=== PATIENT | female | born 1930 | race Caucasian/White ===

== ENCOUNTER 2017-09-01 13:20 | Emergency (ER) | payer MEDICARE ==
[2017-09-01] MEDS ORDERED: DEXAMETHASONE SOD PHOSPHATE 10MG/ML 1ML VIAL ONE (14:36)
[2017-09-01] MEDS ORDERED: IPRATROPIUM/ALBUTEROL SULFATE 3 ML SOLUTION IH ONE (14:43)
== END 2017-09-01 15:34 | disposition home or self-care (01) ==
LOC: EDH 13:20
DX: J09.X2 Influenza due to identified novel influenza A virus with other respiratory manifestations (principal); I10 Essential (primary) hypertension; Z88.1 Allergy status to other antibiotic agents; Z88.8 Allergy status to other drugs, medicaments and biological substances; Z95.1 Presence of aortocoronary bypass graft
CPT/HCPCS: 71046; 87804 ×2; 94640; 96372; 99285; J1100

== ENCOUNTER 2017-11-01 12:46 | Inpatient (IN) | payer MEDICARE ==
[~2017-11-01] VITALS: Ht 154.9 cm; Wt 50.4 kg
[2017-11-01 13:58] LABS: EOSINOPHILS % (AUTO) 3.6 % (0.0-8.0); HEMATOCRIT 40.7 % (36-48); LYMPHOCYTES % (AUTO) 27.9 % (21.0-51.0); MEAN CORPUSCULAR HEMOGLOBIN 30.8 pg (27.0-33.0); MEAN CORPUSCULAR HGB CONC 33.9 g/dL (32.0-36.0); MONOCYTES % (AUTO) 9.7 % (3.0-13.0); NEUTROPHILS % (AUTO) 57.8 % (40.0-77.0); NUCLEATED RED BLOOD CELLS 0.1 % (0.0-0.19); PLATELET COUNT (AUTO) 140 K/uL (130-400); RED BLOOD CELL COUNT(AUTO) 4.47 MIL/uL (4.00-5.50); RED CELL DISTRIBUTION WIDTH 13.9 % (11.0-15.5)
[2017-11-01 14:14] LABS: CARBON DIOXIDE 27 mmol/L (21-32); CHLORIDE 104 mmol/L (101-111); GLOMERULAR FILTR. RATE CALC 56 mL/min (>60); GLUCOSE,RANDOM 163 mg/dL (70-105); POTASSIUM 3.9 mmol/L (3.5-5.1); SODIUM SERUM 140 mmol/L (136-145); UREA NITROGEN, BLOOD 13 mg/dL (7-18)
[2017-11-01 14:25] LABS: B-TYPE NATRIURETIC PEPTIDE 348 pg/mL (0-100)
[2017-11-01 14:27] LABS: ALANINE AMINOTRANSFERASE 30 U/L (12-78); ALBUMIN 3.7 g/dL (3.5-5.0); ASPARTATE AMINOTRANSFERASE 21 U/L (10-37); BILIRUBIN,TOTAL 0.6 mg/dL (0.2-1.0); CREATINE KINASE MB < 0.5 ng/mL (0.5-3.6); CREATINE KINASE, TOTAL 51 U/L (21-232)
[2017-11-01 14:36] LABS: INR 1.05 (0.85-1.15); PARTIAL THROMBOPLASTIN TIME 29.8 SEC (26.3-35.5)
[2017-11-01] MEDS ORDERED: IPRATROPIUM/ALBUTEROL SULFATE 3 ML SOLUTION IH ONE (15:16)
[2017-11-01] MEDS ORDERED: IOPAMIDOL-370 100 ML VIAL IV ONE (17:24)
[2017-11-01] MEDS ORDERED: CARVEDILOL 12.5 MG TABLET PO ONE (18:42)
[2017-11-01] MEDS ORDERED: LEVOFLOXACIN 500 MG/D5W 100 ML 100 ML ONE (18:57)
[2017-11-01] MEDS ORDERED: AZITHROMYCIN 250 MG TABLET PO ONE (18:58)
[2017-11-01 19:00] VITALS: BP 139/90
[2017-11-01] MEDS ORDERED: ACETAMINOPHEN 325 MG TAB PO PRN (20:45)
[2017-11-01] MEDS: IPRATROPIUM/ALBUTEROL SULFATE 3 ML SOLUTION IH SCH (21:10)
[2017-11-01] MEDS ORDERED: CARV12.580 PO (21:37)
[2017-11-01] MEDS ORDERED: LEVO88TA7 PO (21:37)
[2017-11-01] MEDS ORDERED: APIX2.5T PO (21:37)
[2017-11-01] MEDS ORDERED: NIFE30TA91 PO (21:37)
[2017-11-01] MEDS ORDERED: LOVA40TA2 PO (21:37)
[2017-11-01] MEDS ORDERED: LISI30TA4 PO (21:37)
[2017-11-02] VITALS (7 sets, daily range): BP systolic 120–158; BP diastolic 69–101
[2017-11-02] MEDS: IPRATROPIUM/ALBUTEROL SULFATE 3 ML SOLUTION IH SCH ×2 (06:00→06:17)
[2017-11-02] MEDS: LEVOTHYROXINE 88 MCG TABLET PO SCH (06:44)
[2017-11-02 06:50] LABS: HEMATOCRIT 41.3 % (36-48); MEAN CORPUSCULAR HEMOGLOBIN 31.7 pg (27.0-33.0); MEAN CORPUSCULAR HGB CONC 35.1 g/dL (32.0-36.0); MEAN CORPUSCULAR VOLUME 90.2 fL (79-99); PLATELET COUNT (AUTO) 147 K/uL (130-400); RED BLOOD CELL COUNT(AUTO) 4.58 MIL/uL (4.00-5.50); RED CELL DISTRIBUTION WIDTH 14.1 % (11.0-15.5)
[2017-11-02 07:03] LABS: ALBUMIN 3.7 g/dL (3.5-5.0); BILIRUBIN,TOTAL 0.6 mg/dL (0.2-1.0); CREATININE 0.8 mg/dL (0.5-1.5); POTASSIUM 4.2 mmol/L (3.5-5.1); TOTAL PROTEIN, SERUM 7.2 g/dL (6.0-8.3)
[2017-11-02] MEDS: IPRATROPIUM 0.5 MG/2.5 ML INH IH SCH ×3 (07:20→22:15)
[2017-11-02] MEDS ORDERED: NIFEDIPINE ER 30 MG TAB PO SCH (09:00)
[2017-11-02] MEDS: CARVEDILOL 12.5 MG TABLET PO SCH ×2 (09:11→20:19)
[2017-11-02] MEDS: APIXABAN 2.5 MG TABLET PO SCH ×2 (09:11→20:17)
[2017-11-02] MEDS: METHYLPREDNISOLONE SOD SUCC 40MG/ML 1ML IVP SCH ×2 (09:11→20:19)
[2017-11-02] MEDS: ATORVASTATIN CALCIUM 10 MG TABLET PO SCH (20:17)
[2017-11-02] MEDS: LISINOPRIL 10 MG TABLET PO SCH (20:18)
[2017-11-02] MEDS: LEVOFLOXACIN 500 MG/D5W 100 ML 100 ML IV SCH (20:19)
[2017-11-03 03:18] VITALS: BP 142/101
[2017-11-03] MEDS: LEVOTHYROXINE 88 MCG TABLET PO SCH (05:42)
[2017-11-03] MEDS: IPRATROPIUM 0.5 MG/2.5 ML INH IH SCH ×3 (06:32→21:32)
[2017-11-03] MEDS ORDERED: CARVEDILOL 25 MG TABLET PO ONE (08:06)
[2017-11-03] MEDS: APIXABAN 2.5 MG TABLET PO SCH ×2 (08:18→20:11)
[2017-11-03] MEDS: METHYLPREDNISOLONE SOD SUCC 40MG/ML 1ML IVP SCH ×2 (08:18→20:10)
[2017-11-03 08:34] VITALS: BP 143/83
[2017-11-03] MEDS: CARVEDILOL 12.5 MG TABLET PO SCH ×2 (09:00→20:12)
[2017-11-03] MEDS: PANTOPRAZOLE SODIUM 40 MG TABLET.DR PO SCH (10:43)
[2017-11-03 12:00] VITALS: BP 135/69
[2017-11-03] MEDS ORDERED: METOPROLOL TARTRATE 1 MG/ML 5ML VIAL IV PRN (14:15)
[2017-11-03 17:23] VITALS: BP 125/82
[2017-11-03 19:58] VITALS: BP 131/88
[2017-11-03] MEDS: LEVOFLOXACIN 500 MG/D5W 100 ML 100 ML IV SCH (20:09)
[2017-11-03] MEDS: ATORVASTATIN CALCIUM 10 MG TABLET PO SCH (20:11)
[2017-11-03] MEDS: LISINOPRIL 10 MG TABLET PO SCH (20:11)
[2017-11-03 23:28] VITALS: BP 141/86
[2017-11-04 03:20] VITALS: BP 140/81
[2017-11-04] MEDS: LEVOTHYROXINE 88 MCG TABLET PO SCH (06:19)
[2017-11-04] MEDS: PANTOPRAZOLE SODIUM 40 MG TABLET.DR PO SCH (06:19)
[2017-11-04] MEDS: IPRATROPIUM 0.5 MG/2.5 ML INH IH SCH (06:47)
[2017-11-04] MEDS ORDERED: CARV25TA PO (07:40)
[2017-11-04 08:00] VITALS: BP 146/92
[2017-11-04] MEDS: METHYLPREDNISOLONE SOD SUCC 40MG/ML 1ML IVP SCH (08:48)
[2017-11-04] MEDS: APIXABAN 2.5 MG TABLET PO SCH (08:48)
[2017-11-04] MEDS: CARVEDILOL 12.5 MG TABLET PO SCH (08:49)
[2017-11-04 11:00] VITALS: BP 116/76
== END 2017-11-04 13:06 | disposition home or self-care (01) | DRG 193 ==
LOC: EDH 12:46 → OBSVTOIN 18:00 → EDHIP 18:00 → 3AH 20:48
PROVIDERS: ADMIT Internal Medicine Nephrology; ATTEND Internal Medicine Nephrology
DX: J18.9 Pneumonia, unspecified organism (principal); Q22.5 Ebstein's anomaly; I48.2 Chronic atrial fibrillation; I07.1 Rheumatic tricuspid insufficiency; I11.9 Hypertensive heart disease without heart failure; I10 Essential (primary) hypertension; E03.9 Hypothyroidism, unspecified; E78.5 Hyperlipidemia, unspecified; J45.909 Unspecified asthma, uncomplicated; I34.0 Nonrheumatic mitral (valve) insufficiency; D72.819 Decreased white blood cell count, unspecified; R09.02 Hypoxemia; K57.90 Diverticulosis of intestine, part unspecified, without perforation or abscess without bleeding; I25.10 Atherosclerotic heart disease of native coronary artery without angina pectoris; Z95.1 Presence of aortocoronary bypass graft; Z82.49 Family history of ischemic heart disease and other diseases of the circulatory system; Z98.49 Cataract extraction status, unspecified eye; Z88.1 Allergy status to other antibiotic agents; Z88.0 Allergy status to penicillin; Z88.8 Allergy status to other drugs, medicaments and biological substances; Z79.899 Other long term (current) drug therapy; Z79.01 Long term (current) use of anticoagulants; Z87.891 Personal history of nicotine dependence; Z82.3 Family history of stroke
CPT/HCPCS: 36415; 71045; 71275; 80053; 82550; 82553; 83880; 84484; 85025; 85027; 85378; 85610; 85730; 87040; 87804; 93005; 94640; 94664; J1956; J2920; Q9967

== ENCOUNTER 2019-06-18 12:24 | Emergency (ER) | payer MEDICARE ==
[~2019-06-18 12:24] MED LIST: APIX2.5T PO; CARV25TA PO; LEVO88TA7 PO; LISI30TA4 PO; LOVA40TA2 PO
[2019-06-18] MEDS ORDERED: TETANUS/DIPHTHERIA TOXOID [ADULT] 0.5 ML VIAL IM ONE (12:36)
[2019-06-18] MEDS ORDERED: CEPHALEXIN 500 MG CAPSULE ONE (12:52)
== END 2019-06-18 13:51 | disposition home or self-care (01) ==
LOC: EDH 12:24
DX: L03.011 Cellulitis of right finger (principal); E78.00 Pure hypercholesterolemia, unspecified; I10 Essential (primary) hypertension; I25.10 Atherosclerotic heart disease of native coronary artery without angina pectoris; Z88.1 Allergy status to other antibiotic agents
CPT/HCPCS: 73140; 90471; 90714